=== PATIENT | female | born 1970 | race Two or more races ===

== ENCOUNTER → 2025-05-16 | Emergency (ER) | payer OTHER ==
[~2025-05-16] VITALS: Ht 167.6 cm; Wt 64.4 kg
[~2025-05-16] MED LIST: IBUPROFEN800 MG PO; KETOROLAC TROMETHAMINE 60 MG VIAL IM ONE; MUPIROCIN22 GM TOP
== END | disposition home or self-care (01) ==
LOC: ER 11:02
DX: S60.111A Contusion of right thumb with damage to nail, initial encounter (principal); X58.XXXA Exposure to other specified factors, initial encounter; Y93.89 Activity, other specified; Y92.89 Other specified places as the place of occurrence of the external cause; Y99.9 Unspecified external cause status